=== PATIENT | male | born 1940 ===

== ENCOUNTER 2016-06-06 10:06 | Inpatient (IN) | payer MEDICARE, BC ==
--- NOTE | ~2016-06-06 | HP ---
History And Physical [address] [place]. [address] NAME: PRASANNA CLARKE : 38 STATUS : ADM IN [facility]#: [id number] AGE: 76 ADM/REG DATE : 06/07/16 MR#: [id number] REPORT SERV DATE: 06/07/16 DICTATED BY: EDA COHEN DATE: 06/07/16 REPORT STATUS : Draft TRANSCRIBED BY: MODTed DATE: 06/07/16 DATE OF ADMISSION: 06/07/2016 HISTORY: This is a 76-year-old white male who has recently been found to have a very large right renal stone measuring approximately 4 x 2 cm. He was admitted with flank pain from the stone as well as a UTI at [facility] recently and underwent ureteral stenting. He has now completed an appropriate round of antibiotics, and we are planning admission for definitive stone treatment with PCNL. Dr. Ferro had placed a percutaneous nephrostomy access source yesterday. He does have a history of kidney stones and has a history of requiring endoscopic surgery and ESWL for stones in the past. Normally, he voids reasonably well. He has nocturia once a night and urinary frequency about every hour to an hour and a half. He has not been running any fevers at home. He has been on Ceftin prior to admission. He has had a history of an abnormal urodynamic finding of a large capacity bladder with delayed sensation of filling and incomplete bladder emptying in the past. More recent PVRs have been negligible. MEDICAL HISTORY: Includes COPD, CAD, hypertension, and diabetes. SURGICAL HISTORY: Includes cardiac stenting in the past as well as fissurectomy, appendectomy, and previous surgery for stones. SOCIAL HISTORY: He is . He has five children. He is retired. He drinks two drinks a day. He has a smoking history, but not for many years. CURRENT MEDICATIONS: Include aspirin which has been held preoperatively; Lipitor and Plavix, which have also been held; Vasotec; Nexium; Glucophage; Toprol; and oxycodone. ALLERGIES: HE IS ALLERGIC TO SULFA. PHYSICAL EXAMINATION: GENERAL: He is a very pleasant, elderly white male in no distress. He is alert, oriented, and conversive. VITAL SIGNS: He is afebrile. His vital signs are stable. HEENT: Pupils are equal, round, and reactive. Oropharynx is clear. NECK: Supple. No adenopathy. LUNGS: Relatively clear. HEART: Regular. ABDOMEN: Soft, nontender, and nondistended. BACK: He has a right nephrostomy tube draining mildly bloody urine. GENITOURINARY: External genitalia are normal. EXTREMITIES: Show no cyanosis or edema. LABORATORY VALUES: This admission include white cell count of 6.4, H and H of 15 and 44. Pro time of 13.8. BUN and creatinine are 17 and 1.2 respectively. Urine culture from 05/27/2016 has grown Enterococcus faecalis, which has been pansensitive. History And Physical [address] [address] NAME: PRASANNA CLARKE : 38 STATUS : ADM IN [facility]#: [id number] AGE: 76 ADM/REG DATE : 06/07/16 MR#: [id number] REPORT SERV DATE: 06/07/16 DICTATED BY: EDA COHEN DATE: 06/07/16 REPORT STATUS : Draft TRANSCRIBED BY: MODL DATE: 06/07/16 CT of the abdomen and pelvis, 06/06/2016, has shown a roughly 4 x 2 cm stone in the right renal pelvis. A 7 x 5 cm Bosniak class II cyst arising from the posterior aspect of the left kidney with no other significant findings. IMPRESSION: 1. Large right renal stone. 2. Mildly complex right renal cyst. 3. Benign prostatic hypertrophy. 4. History of bladder dysfunction. 5. Diabetes. 6. Coronary artery disease. 7. Chronic obstructive pulmonary disease. PLAN: We will proceed with right PCNL. Risks of infection, bleeding, failure, need for further surgery, and possible loss of kidney have been discussed. ANTHONY/AMBER Eda Cohen M.D. / [id number] CC: Eda Cohen M.D.
--- NOTE | ~2016-06-06 | DS ---
Discharge Summary [facility] [address] [place]. [address] NAME: PRASANNA CLARKE : 38 STATUS : DIS IN PAT#: [id number] AGE: 76 ADM/REG DATE : 06/07/16 MR#: [id number] REPORT SERV DATE: 06/17/16 DICTATED BY: EDA COHEN DATE: 06/16/16 REPORT STATUS : Draft TRANSCRIBED BY: AMBER DATE: 06/16/16 Data Collection from hospitalization DISCHARGE DIAGNOSES: 1. Large right renal pelvic stone. 2. Complex right renal cyst. 3. History of enterococcus urinary tract infection. 4. Hypertension. 5. Diabetes. 6. Chronic obstructive pulmonary disease. 7. Coronary artery disease. CONSULTATIONS: None. PROCEDURES: 1. Right PCNL and stent exchange, 06/07/2016. 2. CT scan of the abdomen without contrast, 06/06/2016. 3. Nephrostomy access, 06/06/2016. PATHOLOGY: Right kidney "cyst" aspiration (thin prep), scant cellularity. No malignant cells identified. DISCHARGE MEDICATIONS: Aspirin 325 mg daily, Lipitor 20 mg every morning, Plavix 75 mg daily, Vasotec 20 mg every morning, Nexium 20 mg daily, Glucophage 500 mg with meals, Toprol XL 25 mg every morning, Endocet 5/325 one tablet every six hours as needed. CONDITION AT DISCHARGE: Stable. DISPOSITION: The patient was discharged home on a 2000-calorie diabetic diet with activities as instructed. He would follow up with me two weeks following discharge and with his primary care provider as needed. HOSPITAL COURSE: This is a 76-year-old man who was found to have a very large right renal stone measuring approximately 4 x 2 cm. He presented with flank pain from the stone as well as a urinary tract infection at [facility] recently and underwent ureteral stenting. He had completed an appropriate round of antibiotics and plans were made for definitive stone treatment with PCNL. On the day prior to admission, Dr. Ferro placed a percutaneous nephrostomy access source. A CT scan of the abdomen had also been performed. The patient has a history of kidney stones and has a history of requiring endoscopic surgery and ESWL for stones in the past. Normally, he voids reasonably well. He does have nocturia once a night and urinary frequency about every hours or [id number]. He had been on Ceftin prior to admission. He presented to the hospital at this time for further evaluation and treatment. Upon admission, he was taken to the operating room where he underwent the above-mentioned procedure. He tolerated this well. There were no complications. On postop day #1, he had no complaints. Creatinine level was 1.35. Urine culture was negative. We were going to clamp/plug the RPCN. KUB was going to be checked. On the 06/09/2016, he was passing a lot Discharge Summary [address] [place]. [address] NAME: PRASANNA CLARKE : 38 STATUS : DIS IN PAT#: [id number] AGE: 76 ADM/REG DATE : 06/07/16 MR#: [id number] REPORT SERV DATE: 06/17/16 DICTATED BY: EDA COHEN DATE: 06/16/16 REPORT STATUS : Draft TRANSCRIBED BY: AMBER DATE: 06/16/16 of flatus. Right stent and PCN were in good position. PCN was removed. The Daugherty catheter was going to be discontinued. Discharge planning was performed. On 06/10/2016, he had no new complaints. He did have a bowel movement. He was doing well postoperatively. Discharge instructions were given. Due to his improved and stable condition, he was discharged home with the above-stated instructions. Information collected by: Nellie Paul I submit the above information as my discharge summary. FELICIANO/AMBER Eda Cohen M.D. / [id number] CC: Eda Cohen M.D.
--- NOTE | ~2016-06-06 | OP ---
Record Of Operation [facility] [address] [place]. [address] NAME: PRASANNA CLARKE : 36 STATUS : ADM IN PAT#: [id number] AGE: 76 ADM/REG DATE : 06/07/16 MR#: [id number] REPORT SERV DATE: 06/07/16 DICTATED BY: EDA COHEN DATE: 06/07/16 REPORT STATUS : Draft TRANSCRIBED BY: MODL DATE: 06/07/16 DATE OF PROCEDURE: 06/07/2016 PREOPERATIVE DIAGNOSES: 1. Large right renal pelvic stone. 2. Complex right renal cyst. 3. History enterococcus urinary tract infection. POSTOPERATIVE DIAGNOSES: 1. Large right renal pelvic stone. 2. Complex right renal cyst. 3. History enterococcus urinary tract infection. PROCEDURE PERFORMED: Right PCNL and stent exchange. SURGEON: Eda Cohen M.D. ANESTHESIA: General. ESTIMATED BLOOD LOSS: 50 to 75 mL. INDICATIONS: This is a 76-year-old white male, who has presented with a roughly 4 x 2 cm stone in the right renal collecting system. Initially, this was associated with UTI, and he has undergone ureteral stenting, and antibiotic coverage. We are planning definitive treatment with PCNL. He had a right percutaneous nephrostomy tube placed yesterday by Dr. Ferro. He was noted at that time to have a Bosniak class 2 right renal cyst and this was aspirated and cyst fluid was sent for cytology as well. Risks of the PCNL including, but not limited to infection, bleeding, failure, injury to/or loss of the kidney have been discussed. PROCEDURE IN DETAIL: The patient was taken to the operating room and underwent a general anesthetic. He was placed in a prone position on the table, and the skin of his right flank was prepped and draped. A Daugherty catheter was placed as well. Using fluoroscopic guidance, an antegrade pyelogram was obtained outlining the renal collecting system with a very large defect in the renal pelvic region corresponding to the stone. A guidewire was then placed through the existing ureteral nephrostomy tube and was advanced in an antegrade fashion down into the bladder. The ureteral stent appeared to be in good position. An Arrow sheath with obturator was then advanced over the guidewire down into the bladder as well and a second guidewire was placed through the Arrow sheath under fluoroscopic guidance. The Arrow sheath was removed. A short stab skin incision was made and a balloon dilator was advanced over one of the two balloons, and a tract was successfully dilated into the renal pelvic area of the kidney. I was able to advance a clear 32-Maldivian sheath over the guidewire obtaining access to the kidney for the nephroscope. The balloon dilation apparatus was removed leaving both guidewires and the access sheath in place. The nephroscope was advanced through the access sheath into the collecting system of the kidney, and immediately, we identified a large stone. Percutaneous ultrasonic lithotripsy was used to fragment the Record Of Operation [facility] [address] [facility] [place]. [address] NAME: PRASANNA CLARKE : 36 STATUS : ADM IN PAT#: [id number] AGE: 76 ADM/REG DATE : 06/07/16 MR#: [id number] REPORT SERV DATE: 06/07/16 DICTATED BY: EDA COHEN DATE: 06/07/16 REPORT STATUS : Draft TRANSCRIBED BY: AMBER DATE: 06/07/16 stone into many pieces and which were then suctioned from the renal collecting system. The stone was quite soft and had an almost a fluffy external coating. When all of the visible stone was removed, we made an effort to inspect as many calices as possible to suction out any residual stone fragments, and also some stone fragments were suction from the UPJ area as well. Following this, the cystoscope was inserted into the kidney through the access sheath, and the collecting system was inspected using the cystoscope as well. I was able to access in the upper pole calyx and there was some stone debris, but all the pieces were small and nothing required fragmentation. The other calices were inspected as well with no significant findings. The cystoscope was then withdrawn from the kidney and the ureteroscope was placed back into the collecting system of the kidney. The grasper was used to grab the ureteral stent and removed it. Another guidewire was placed down through the ureter into the bladder and a 6-Maldivian x 26 cm Contour stent was advanced over the guidewire such that the distal end of the stent was observed to coil in the bladder under fluoroscopic guidance, and the proximal end of the stent was visually observed to coil in the pelvis of the kidney following removal of the guidewire. The nephroscope was then withdrawn from the kidney and a 20-Maldivian Remus catheter was placed through the access sheath and 3 mL of sterile water was inflated in the balloon which was located in the dilated renal pelvis. Another pyelogram was obtained using the Remus catheter showing no significant extravasation from the collecting system and good position of the catheter and stent. The remaining guidewire was then removed and the catheter was secured to the skin using a 2-0 silk suture. The catheter was placed to gravity drainage as was his Daugherty catheter and a sterile dressing was applied. The patient tolerated the procedure well and was taken to recovery in stable condition. ANTHONY/AMBER Eda Cohen M.D. / [id number] CC: Eda Cohen M.D.
[~2016-06-06 10:06] MED LIST: ASA5GR PO; CEFT5 PO; ENDOCET1 TAB PO; GLUCPH PO; LIPITOR20 PO; PLAVIX PO; TOPXL25 PO; VASOTEC20 MG PO
[2016-06-06 11:04] LABS: HEMATOCRIT 44.9 % (40.0-51.0); HEMOGLOBIN 15.4 g/dL (13.6-17.8); PLATELET COUNT 158 10/3/uL (150-400)
[2016-06-06 11:12] LABS: INTERNATIONAL NORMAL RATI 1.1 UNITS (-); PARTIAL THROMBO TIME 30.4 SEC (22.5-37.2); PROTIME (NOT ORD) 13.8 SEC (12.0-14.5)
[2016-06-06 11:16] LABS: BUN (BLOOD UREA NITROGEN) 17 MG/DL (6-23); CALCIUM, SERUM 8.8 MG/DL (8.5-10.4); CHLORIDE, SERUM 101 MMOL/L (96-112); CO2 (CARBON DIOXIDE) 30 MMOL/L (24-34); CREATININE 1.23 MG/DL (0.70-1.30); GFR AFRICAN AMERICAN 65 ML/MIN (>=60); GFR NON AFRICAN AMERICAN 56 ML/MIN (>=60); GLUCOSE, SERUM 154 MG/DL (60-99); POTASSIUM, SERUM 4.4 MMOL/L (3.5-5.3); SODIUM, SERUM 139 MMOL/L (135-148)
[2016-06-06] MEDS ORDERED: NEXIUM20 M1 PO (11:50)
[2016-06-06 12:36] LABS: BASOPHILS 0.3 %; BASOPHILS ABSOLUTE 0.02 10/3/uL (0.0-0.16); EOSINOPHILS 6.3 %; IMMATURE GRANULOCYTES 0.2 %; IMMATURE GRANULOCYTES ABSOLUTE 0.01 10/3/uL (0.0-0.11); LYMPHOCYTES 21.8 %; LYMPHOCYTES ABSOLUTE 1.39 10/3/uL (0.67-4.30); MEAN CORPUS HGB CONC 34.6 g/dL (32.0-36.0); MEAN CORPUSCULAR HEMOGLOB 31.1 pg (26.0-34.0); MEAN CORPUSCULAR VOLUME 89.9 fL (80-100); MEAN PLATELET VOLUME 11.4 fL (9.2-13.0); MONOCYTES 7.8 %; NEUTROPHILS 63.6 %; NEUTROPHILS ABSOLUTE 4.06 10/3/uL (2.02-8.40); RBC DISTRIBUTION WIDTH 13.1 % (12.0-16.0); RED CELL COUNT 4.86 10/6/uL (4.7-6.1); WHITE BLOOD CELLS 6.4 10/3/uL (4.5-10.5)
[2016-06-06 12:37] LABS: MANUAL DIFF NO %
[2016-06-06 19:54] LABS: ASCORBIC ACID (UR NOT ORDER) NEG (NEG); BILIRUBIN, URINE NEGATIVE (NEG); KETONE, URINE TRACE MG/DL (NEG); LEUKOCYTE ESTERASE(NOT OR SMALL (NEG); WBC (NOT ORDERED) (RFLEX) 20 (0-5)
[2016-06-08 10:38] LABS: BASOPHILS 0 %; EOSINOPHILS 0.4 %; EOSINOPHILS ABSOLUTE 0.04 10/3/uL (0.0-0.53); HEMATOCRIT 37.8 % (40.0-51.0); HEMOGLOBIN 12.6 g/dL (13.6-17.8); IMMATURE GRANULOCYTES 0.2 %; IMMATURE GRANULOCYTES ABSOLUTE 0.02 10/3/uL (0.0-0.11); LYMPHOCYTES 10.7 %; LYMPHOCYTES ABSOLUTE 1.02 10/3/uL (0.67-4.30); MANUAL DIFF NO %; MEAN CORPUS HGB CONC 33.3 g/dL (32.0-36.0); MEAN CORPUSCULAR HEMOGLOB 30.7 pg (26.0-34.0); MONOCYTES 7.7 %; MONOCYTES ABSOLUTE 0.73 10/3/uL (0.21-1.20); NEUTROPHILS ABSOLUTE 7.71 10/3/uL (2.02-8.40); PLATELET COUNT 131 10/3/uL (150-400); RBC DISTRIBUTION WIDTH 13.6 % (12.0-16.0); RED CELL COUNT 4.11 10/6/uL (4.7-6.1); WHITE BLOOD CELLS 9.5 10/3/uL (4.5-10.5)
[2016-06-08 10:51] LABS: BUN (BLOOD UREA NITROGEN) 17 MG/DL (6-23); CALCIUM, SERUM 7.9 MG/DL (8.5-10.4); CHLORIDE, SERUM 102 MMOL/L (96-112); CO2 (CARBON DIOXIDE) 28 MMOL/L (24-34); CREATININE 1.35 MG/DL (0.70-1.30); GFR AFRICAN AMERICAN 58 ML/MIN (>=60); GFR NON AFRICAN AMERICAN 50 ML/MIN (>=60); GLUCOSE, SERUM 152 MG/DL (60-99); POTASSIUM, SERUM 4.5 MMOL/L (3.5-5.3); SODIUM, SERUM 137 MMOL/L (135-148)
[2016-06-09 05:02] LABS: BASOPHILS 0.1 %; BASOPHILS ABSOLUTE 0.01 10/3/uL (0.0-0.16); EOSINOPHILS 6.1 %; EOSINOPHILS ABSOLUTE 0.51 10/3/uL (0.0-0.53); HEMATOCRIT 36.5 % (40.0-51.0); HEMOGLOBIN 12.1 g/dL (13.6-17.8); IMMATURE GRANULOCYTES 0.2 %; IMMATURE GRANULOCYTES ABSOLUTE 0.02 10/3/uL (0.0-0.11); LYMPHOCYTES 20.5 %; LYMPHOCYTES ABSOLUTE 1.71 10/3/uL (0.67-4.30); MEAN CORPUS HGB CONC 33.2 g/dL (32.0-36.0); MEAN CORPUSCULAR HEMOGLOB 30.5 pg (26.0-34.0); MEAN CORPUSCULAR VOLUME 91.9 fL (80-100); MEAN PLATELET VOLUME 11.1 fL (9.2-13.0); MONOCYTES 6.9 %; MONOCYTES ABSOLUTE 0.58 10/3/uL (0.21-1.20); NEUTROPHILS 66.2 %; NEUTROPHILS ABSOLUTE 5.52 10/3/uL (2.02-8.40); PLATELET COUNT 115 10/3/uL (150-400); RBC DISTRIBUTION WIDTH 13.6 % (12.0-16.0); RED CELL COUNT 3.97 10/6/uL (4.7-6.1); WHITE BLOOD CELLS 8.4 10/3/uL (4.5-10.5)
[2016-06-09 05:05] LABS: MANUAL DIFF NO %
[2016-06-09 05:26] LABS: BUN (BLOOD UREA NITROGEN) 17 MG/DL (6-23); CALCIUM, SERUM 8.2 MG/DL (8.5-10.4); CHLORIDE, SERUM 106 MMOL/L (96-112); CO2 (CARBON DIOXIDE) 25 MMOL/L (24-34); CREATININE 1.23 MG/DL (0.70-1.30); GFR AFRICAN AMERICAN 65 ML/MIN (>=60); GFR NON AFRICAN AMERICAN 56 ML/MIN (>=60); GLUCOSE, SERUM 154 MG/DL (60-99); POTASSIUM, SERUM 4.1 MMOL/L (3.5-5.3); SODIUM, SERUM 140 MMOL/L (135-148)
[2016-06-11 19:57] LABS: STONE COMPOSITION TWO DNR (())
== END 2016-06-10 17:58 | disposition home or self-care (01) | DRG 661 ==
LOC: IMGHOLD 10:06 → RADHOLD 11:03 → SSU1 16:34 → SDC/OF 06-07 06:54 → PACU 06-07 10:29 → 4SO 06-07 11:51
PROVIDERS: Radiology Diagnostic Radiology; Urology
DX: N20.0 Calculus of kidney (principal); J44.9 Chronic obstructive pulmonary disease, unspecified; E11.9 Type 2 diabetes mellitus without complications; N28.1 Cyst of kidney, acquired; Z87.440 Personal history of urinary (tract) infections; I25.10 Atherosclerotic heart disease of native coronary artery without angina pectoris; Z95.5 Presence of coronary angioplasty implant and graft; I10 Essential (primary) hypertension; Z87.891 Personal history of nicotine dependence; Z79.82 Long term (current) use of aspirin; Z79.02 Long term (current) use of antithrombotics/antiplatelets; Z79.84 Long term (current) use of oral hypoglycemic drugs; Z79.891 Long term (current) use of opiate analgesic; Z88.2 Allergy status to sulfonamides; N32.89 Other specified disorders of bladder
CPT/HCPCS: 50433; 71020; 74000; 74150; 80048; 81001; 82365; 82962; 85025; 85610; 85730; 87086; 88173; 93005; 94640; A9270-GY; C1726; C1729; C1758; C1769; C1894; C2617; C2625; J1170; J1956; J2250; J2370; J2405; J2710; J3010; Q9967